=== PATIENT | female | born 2000 | race Caucasian/White ===

== ENCOUNTER 2024-05-08 16:21 | Emergency (ER) | payer BC ==
[2024-05-08 17:19] LABS: Bilirubin Negative (Negative); Blood, Urine Large (Negative); Clarity Very Cloudy (Clear); Glucose, Urine (Dipstick) Negative (Negative); Ketone, Urine Trace mg/dL (Negative); Leukocyte Moderate (Negative); Nitrite Negative (Negative); Protein, Urine (Dipstick) > or equal to 300 mg/dL (Neg-Trace); Urobilinogen 0.2 mg/dL (Less than 2); pH, Urine 7.5 (5.0-9.0)
[2024-05-08 17:20] LABS: Pregnancy Test - Urine (BHCG) Negative (Negative)
[2024-05-08 17:21] LABS: Pregu Control Background? CLEAR/WHITE (CLR/WHITE); Pregu Control Bar Appear? YES (CONTROL BAR)
[2024-05-08 17:25] LABS: Bacteria/HPF Rare-Few HPF (None Seen); CAUTI Indications for Culture Dysuria,urgency,freq; RBC/HPF Greater than 50 HPF (0-3); Squamous Epithelial 0-3 HPF (0-3); Urine Culture Reflex Yes Yes; WBC/HPF Greater Than 50 HPF (0-3)
[2024-05-08] MEDS ORDERED: Ondansetron PF 4 MG/2 ML Vial ONE (17:27)
[2024-05-08] MEDS ORDERED: Morphine 2 MG/ML VIAL ONE (17:27)
[2024-05-08] MEDS ORDERED: Sodium Chloride 0.9% 1,000 ML ONE ×2 (17:27→18:30)
[2024-05-08 17:37] LABS: #Lymphocytes 1.4 thou/uL (1.20-3.40); #Monocytes 0.8 thou/uL (0.11-0.59); #Neutrophils 3.9 thou/uL (1.40-6.50); %Basophils 0.8 % (0.0-1.0); %Eosinophils 0.5 % (0.0-10.0); %Lymphocytes 22.7 % (21.0-51.0); %Monocytes 12.3 % (0.0-10.0); %Neutrophils 63.7 % (42.0-75.0); Hematocrit 36.7 % (36.0-47.0); Mean Corpuscular HGB CONC 32.7 g/dL (32.0-36.0); Mean Corpuscular Volume 85.7 fl (78.0-98.0); Mean Platelet Volume 7.5 fL (7.4-10.4); Platelet Count 310 10x3/uL (130-400); Red Blood Cell (RBC) Count 4.28 mill/uL (4.20-5.40); White Blood Cell (WBC) Count 6.1 10x3/uL (4.8-10.8)
[2024-05-08 17:55] LABS: ALT (SGPT) 16 U/L (8-55); AST (SGOT) 20 U/L (5-34); Albumin 4.1 g/dL (3.5-5.0); Alkaline Phosphatase 105 U/L (40-110); Anion Gap 18 mmol/L (10-20); BUN (Urea Nitrogen) 13 mg/dL (7.0-18.7); Bilirubin, Total 1.5 mg/dL (0.2-1.2); Calc. Creatinine Clearance 0 mL/min (70-130); Calcium 9.3 mg/dL (7.8-10.44); Carbon Dioxide 22 mmol/L (22-29); Chloride 100 mmol/L (98-107); Estimated GFR 79; Globulin 3.8 g/dL (2.4-3.5); Glucose 88 mg/dL (70-105); Lipase 12 U/L (8-78); Potassium 3.5 mmol/L (3.5-5.1); Protein, Total 7.9 g/dL (6.0-8.3); Sodium 136 mmol/L (136-145)
[2024-05-08] MEDS ORDERED: Cephalexin 250 MG CAP ONE (19:39)
[2024-05-08] MEDS ORDERED: traMADol HCl 50 MG TAB ONE (19:39)
[2024-05-08] MEDS ORDERED: Ciprofloxacin 500 MG TAB ONE (19:54)
== END 2024-05-08 20:16 | disposition home or self-care (01) ==
LOC: MADERS 16:21
DX: N39.0 Urinary tract infection, site not specified (principal); F17.290 Nicotine dependence, other tobacco product, uncomplicated
CPT/HCPCS: 74176; 80053; 81001; 81025; 83690; 85025; 87077; 87086; 87186; 96361; 96374; 96375; J2272; J2405; J7030